=== PATIENT | male | born 1940 | race African-American/Black ===

== ENCOUNTER 2023-08-16 12:27 | Outpatient (AMB) | payer MEDICARE, SELFPAY ==
--- NOTE | 2023-08-16 12:31 | A.OFFVIS_ITS ---
Intake VS Expanded 08/16/23 12:31 08/21/23 12:48 Height 5 ft 6 in 5 ft 6 in Weight 124 lb 1.924 oz 124 lb BMI 20.0 20.0 Intake Visit Reasons: Weightloss, appt confirmed Allergies oxycodone [OXYCODONE] Allergy (Unknown, Unverified 07/16/20 19:51) HALLUCINATIONS PERCOCET Allergy (Unknown, Uncoded 03/20/20 00:00) HPI Nutrition Presentation Details Pt presents for MNT for weight loss. Pt was referred by PCP, ANA LAURA Sparks from [facility] Pt is accompanied by [employer] during this appt. The Pt reports having lost taste of foods since have had COVID over 2 yrs ago., losing > 25 lbs He reports he weighs himself at home, daily and after meals to see changes in his weight and reports his weight maintains at 117 lbs at home. He reports gradual weight gain of 7 lbs over 2-3 months Pt reports appetite is not great, he reports he is able to smell the foods but cannot taste the food and often times does not finish the meal. He reports he is working on increasing his food intake and is hopeful Pt has right arm prostesis Breakast: dinner meals turkey sandwhich, turkey ,2 slice turkey 4 slcies and 1 slice of cheese , 1/4 can of soda chicken vegetable reports having diarrhea after consuming lactose containing foods EJM-Rrxpkel-Qf.Jeor Equation Height 5 ft 6 in Weight 124 lb Resting Metabolic Rate 1206.28 Calculated Activity Level Sedentary Calories Needed to Maintain Weight 1447.54 Diagnosis Nutrition problem #1 unintended weight loss As related to (etiology) #1 change in taste As evidenced by (sign/symptom) #1 food recall and poor PO intake Monitoring/Goals Nutrition problem monitoring total PRO intake and weight Nutrition goal/outcome wt gain 5lbs in 2 months Outcome progress verbalized understanding Learning/Education Readiness to learn good Stages of change action Educational materials provided Yes (increase luis from prot rich foods, lactose free to reduce diarrhea) Most Recent Diabetes Results: Sodium 138 MMOL/L (135-145) 03/26/20 Potassium 3.1 MMOL/L (3.3-5.1) L 03/26/20 Chloride 98 MMOL/L (96-108) 03/26/20 Assessment & Plan Assessment & Plan (1) Weight loss: Code(s): R63.4 - Abnormal weight loss Plan: wt: 56 Est kcal needs as per MSJ: 1500 + 250/500 (40% carb, 30% protein/fat) Est fluid needs as per 25-30 ml/d: 1400- 1700 Est prot per day as per 1 g/kg bw: 56 Recommend fiber intake : 8-10 g per day and gradually increase to 25-28 g per day for women and 35-38 g for men or as tolerated Recommend sodium intake per day : less than 2000 mg Educated patient on: ( R = reviewed V = verbalizes understanding N/R = needs review N/A = not applicable * Adding flavors/spices to increase smell and appetite of foods R * Including foods sources of B vitamins and Zinc R * Choosing lactose free options R * Adding 250-500 calories for weight gain R * Patient Instructions: choose lactose free dairy choices of foods (milk/ice cream/yogurts), make cereals/mashed potatoes/soups/shakes with full fat lactose free milk Add protein to soup (add eggs, shrimp , fish chicken, to current noodles ADD carnation instant breakfast to milk see meals ideas Coding Level of Care Code Nutr Indiv Intake (76152) Diagnoses Weight loss R63.4 Time Spent (min) 30
== END 2023-08-16 13:14 | disposition home or self-care (01) ==
PROVIDERS: PCP Physician Assistant; Visit Provider Dietitian, Registered
DX: R63.4 Abnormal weight loss (principal)

== ENCOUNTER → 2023-08-16 12:27 | Outpatient (BNVA) | payer MEDICARE, SELFPAY | PROVIDERS: PCP Physician Assistant; Visit Provider Dietitian, Registered | DX: R63.4 Abnormal weight loss (principal) | CPT/HCPCS: 97802 ==